=== PATIENT | male | born 1965 | race Caucasian/White ===

== ENCOUNTER 2021-10-01 01:49 | Inpatient (IN) | payer MEDICAID, OTHER ==
[~2021-10-01] VITALS: Ht 175.3 cm; Wt 102.5 kg
--- NOTE | 2021-10-01 02:00 | NUR ---
[id number] FROM STREETS C/O FEELING WEAK TODAY. PATIENT ALERT AND ORIENTED X3, AMBULATORY BUT BROUGHT IN BY STRETCHER. PATIENT IN BED 12 ON MONITOR AND POX, AWAITING MD GANDHI.
[2021-10-01] MEDS ORDERED: hydrALAZINE HCL IV 20 MG VIAL ONE (02:12)
[2021-10-01] MEDS ORDERED: hydrALAZINE HCL IV 20 MG VIAL IV ONE (02:30)
--- NOTE | 2021-10-01 02:37 | NUR ---
BLOOD COLLECTED AND SENT TO LAB
--- NOTE | 2021-10-01 02:37 | NUR ---
URINE COLLECTED AND SENTT O LAB
--- NOTE | 2021-10-01 02:37 | NUR ---
EMT AT BEDSIDE FOR EKG
[2021-10-01 02:46] LABS: BASOPHILS # (AUTO) 0.1 K/uL (0.0-0.2); BASOPHILS % (AUTO) 0.6 % (0.0-2.0); EOSINOPHILS % (AUTO) 1.2 % (0.0-6.0); HEMATOCRIT 30 % (39-51); LYMPHOCYTES # (AUTO) 1.3 K/uL (0.8-4.8); LYMPHOCYTES % (AUTO) 10.4 % (20.0-44.0); MEAN CORPUSCULAR HGB CONC 33 g/dl (31.0-36.0); MEAN CORPUSCULAR VOLUME 93 fL (80-96); MONOCYTES # (AUTO) 1.3 K/uL (0.1-1.30); MONOCYTES % (AUTO) 10.9 % (2.0-12.0); NEUTROPHILS # (AUTO) 9.5 K/uL (1.8-8.9); NEUTROPHILS % (AUTO) 76.9 % (43.0-81.0); PLATELET COUNT (AUTO) 186 K/uL (150-450); RED BLOOD CELL COUNT(AUTO) 3.25 MIL/uL (4.5-6.0); WHITE BLOOD COUNT (AUTO) 12.3 K/uL (4.3-11.0)
--- NOTE | 2021-10-01 02:46 | NUR ---
POC BS ACCUCHECK 90; DR. DE JESUS DO AWARE
--- NOTE | 2021-10-01 02:47 | NUR ---
PT TAKEN TO CT VIA MARCIA
[2021-10-01 02:53] LABS: BILIRUBIN,URINE NEGATIVE (NEGATIVE); COLOR,URINE YELLOW (YELLOW); LEUKOCYTE ESTERASE ,URINE NEGATIVE (NEGATIVE); NITRITE, URINE NEGATIVE (NEGATIVE); PH,URINE 5.5 (5.0-8.0); PROTEIN,URINE 30 mg/dl (NEGATIVE); UGLUCOSE NEGATIVE (NEGATIVE); UROBILINOGEN,URINE 0.2 EU/dL (0.2)
[2021-10-01 03:00] LABS: CALCIUM, SERUM 8.4 mg/dL (8.5-10.1); CARBON DIOXIDE 20 mmol/L (21-32); CHLORIDE 104 mmol/L (98-107); CREATININE 2.6 mg/dL (0.6-1.3); GLUCOSE 107 mg/dL (74-106); POTASSIUM 4.9 mmol/L (3.5-5.1); SODIUM SERUM 134 mmol/L (136-145); UREA NITROGEN, BLOOD 35 mg/dL (7-18)
[2021-10-01 03:06] LABS: ALANINE AMINOTRANSFERASE 17 U/L (12-78); ALBUMIN 2.9 g/dL (3.4-5.0); ALKALINE PHOSPHATASE 141 U/L (46-116); ASPARTATE AMINOTRANSFERASE 48 U/L (15-37); BILIRUBIN,DIRECT 0.3 mg/dL (0.0-0.2); BILIRUBIN,TOTAL 1.9 mg/dL (0.2-1.0); TOTAL PROTEIN, SERUM 9.4 g/dL (6.4-8.2)
--- NOTE | 2021-10-01 04:44 | NUR ---
COVID SWAB COLLECTED AND SENT TO LAB
[2021-10-01] MEDS ORDERED: CEFTRIAXONE 1GM BAG (ER ONLY) 50 ML IV ONE (04:46)
[2021-10-01] MEDS ORDERED: CEFTRIAXONE 1GM BAG (ER ONLY) 1 GM/50 ML PIGGYBACK IV ONE (05:00)
[2021-10-01] MEDS ORDERED: AZITHROMYCIN 500 MG in IV D5W 250 ML IV ONE (05:00)
[2021-10-01] MEDS ORDERED: MAG HYDROX/AL HYDROX/SIMETH 30 ML UDC PO PRN (05:00)
[2021-10-01] MEDS ORDERED: LORAZEPAM INJ 2 MG/ML VIAL IV PRN (05:00)
[2021-10-01] MEDS ORDERED: MAGNESIUM HYDROXIDE 30 ML UDC PO PRN (05:00)
[2021-10-01] MEDS ORDERED: Z GUARD REMEDY 4 OZ OINT TP PRN (05:00)
[2021-10-01] MEDS ORDERED: ZOLPIDEM TARTRATE 5 MG TABLET PO PRN (05:00)
[2021-10-01] MEDS ORDERED: ONDANSETRON HCL/PF 4 MG/2 ML VIAL IVP PRN (05:00)
--- NOTE | 2021-10-01 05:17 | NUR ---
WIRE COATING OPERATOR METAL AT PT'S BEDSIDE
[2021-10-01] MEDS ORDERED: AZITHROMYCIN 500 MG VIAL ONE (05:32)
--- NOTE | 2021-10-01 05:38 | NUR ---
BED ASSIGNMENT: 115-1 AFTER SHIFT CHANGE
--- NOTE | 2021-10-01 07:32 | NUR ---
PT REPORT GIVEN TO LEEANNA HUTCHISON
--- NOTE | 2021-10-01 07:43 | NUR ---
pt was transferred to [facility] in stable condition
[2021-10-01] MEDS: THIAMINE HCL 100 MG TABLET PO SCH (08:23)
[2021-10-01] MEDS: DOXYCYCLINE HYCLATE (100 MG) 100 MG TABLET PO SCH ×2 (08:23→16:09)
[2021-10-01] MEDS: PANTOPRAZOLE 40 MG TABLET.DR PO SCH (08:23)
--- NOTE | 2021-10-01 09:51 | NUR ---
WOUND CARE CONSULT: PT PRESENTS WITH RT BELOW KNEE AMPUTATION STUMP AND OPEN ULCERS TO LEFT PLANTAR FOOT, LEFT HEEL AND LEFT LATERAL LOWER LEG, PRESENT ON ADMISSION. DPM CONSULT CALLED TO DR CLAYTON. RECOMMENDATIONS MADE FOR SKIN PROTECTION. DISCUSSED WITH NURSING STAFF. MD IN AGREEMENT WITH PLAN OF CARE.
--- NOTE | 2021-10-01 11:14 | NUR ---
ADMISSION NOTES PT ADMITTED TO ER, FOUND ON THE SIDE OF THE STREET SLEPING, PT COMPLAINS OF "FEELING WEAK TODAY". PT ADMITTED TO TELE. A/OX 2, PT ON RA SATING AT 98%. IV ACCESS AT L WRIST 22G. ALL PICTURES TAKEN. NO S/S OR C/O PAIN. ALL SAFETY MEAUSURES IN PLACE, FALL PRECAUTIONS IN PLACE, WILL CONT. TO MONITOR THROUGHOUT SHIFT.
[2021-10-01 12:00] VITALS: BP 130/45
[2021-10-01] MEDS: IV NS 0.9% 1,000 ML IV PRN (14:51)
[2021-10-01] MEDS: MORPHINE SULFATE INJ 2 MG/ML DISP.SYRIN IV PRN ×2 (15:08→23:49)
--- NOTE | 2021-10-01 15:29 | NUR ---
SS consult requested for homelessness. Pt. is a 56-year-old male who was admitted to [facility] on 10/01/2021 due to weakness. Per EMR, pt. was found on the side of the street sleeping. Upon SS consult, pt. is alert and oriented x4. Pt. appears unkempt and provides appropriate eye contact. Pt. presents with right lower knew amputated and wounds on left leg. Pt. presents with a normal mood and congruent affect. Pt. stated he was not homeless and currently at an assisted living facility at [address] [place] [address]. Pt. stated that [facility] would know the name of the assisted living facility. Pt. stated he was homeless a month ago but has been staying at this facility. Pt. was unable to provide a name or phone number of the facility. Pt. stated he has history with methamphetamine but hasnt used in years. Pt. denied psychiatric diagnosis. Pt. denied suicidal and homicidal ideation. Pt. denied visual and auditory hallucinations. SS will follow up at a later time for homeless resources.
[2021-10-01 16:00] VITALS: BP 152/62
[2021-10-01] MEDS ORDERED: *INSULIN REGULAR(HUMULIN R)HUM 100 UNIT/ML VIAL SQ PRN (16:30)
[2021-10-01] MEDS ORDERED: DEXTROSE 50%-WATER 50 ML DISP.SYRIN IV PRN (16:30)
[2021-10-01] MEDS: BLOOD SUGAR DIAGNOSTIC 1 EACH STRIP VI SCH ×2 (17:38→21:47)
[2021-10-01] MEDS: INSULIN REGULAR, HUMAN 100 UNIT/ML 3 ML VIAL SQ PRN ×2 (17:41→21:57)
--- NOTE | 2021-10-01 18:51 | NUR ---
RN CLOSING NOTES PT IN BED RESTING, A/OX 2, PT ON RA SATING AT 98%. IV ACCESS AT L WRIST 22G. NO S/S OR C/O PAIN. ALL SAFETY MEASURES IN PLACE, FALL PRECAUTIONS IN PLACE, WILL ENDORSE TO FINANCIAL AUDITOR RN FOR BLANCA.
[2021-10-01] MEDS: hydrALAZINE HCL 25 MG TABLET PO PRN (19:45)
[2021-10-01 20:00] VITALS: BP 168/72
--- NOTE | 2021-10-01 20:00 | NUR ---
PT IN BED RESTING, HOB ELEVATED. A/OX 2, PT ON RA WITH 99 % O2 SAT. IV ACCESS AT L WRIST 22G. IV FLUIDS RUNNING. NO S/S OR C/O PAIN. ALL SAFETY MEASURES IN PLACE, FALL PRECAUTIONS IN PLACE. CALL LIGHT IN REACH.
[2021-10-01 21:27] VITALS: BP 103/70
[2021-10-02] VITALS: BP 143/60
[2021-10-02] MEDS: IV NS 0.9% 1,000 ML IV PRN ×2 (03:40→16:53)
[2021-10-02 04:00] VITALS: BP 139/62
[2021-10-02] MEDS: CEFTRIAXONE 1 G in IV D5W 50 ML IV SCH (04:05)
--- NOTE | 2021-10-02 06:43 | NUR ---
CLOSING RN NOTE: A/O X2. REORIENTED NEEDED. MOIST ORAL MUCOSA. FAIR SKIN TURGOR. IV FLUIDS RUNNING NS AT 75MLS /HR ON LEFT WRIST IV. IV INTACT WITH NO S/S OF COMPLICATIONS. ON TELE READING SINUS RHYTHM 72. ON ABX IV. BLOOD AND LEG FOOT WOUND CULTURES PENDING. LEFT FOOT WOUND DRESSING IS CLEAN AND DRY. KEPT OFF LOADED. BLOOD GLUCOSE CHECKED AND COVERED ORDERED. TIME ONE EPISODE OF EMESIS UNDIGESTED FOOD, DECLINED MAALOX. REQUESTED TYLENOL FOR HEADACHE, MARTÍN GUZMAN TRIMMER MACHINE NOTIFIED. CONTINENT AND INCONTINECE OF URINE. KEPT CLEAN AND DRY. FALL PRECAUTIONS MAINTAINED. WILL ENDORSE TO AM NURSE RN.
[2021-10-02] MEDS: PANTOPRAZOLE 40 MG TABLET.DR PO SCH ×2 (07:30→08:42)
--- NOTE | 2021-10-02 07:40 | NUR ---
RN OPENING NOTE RECEIVED PATIENT A/O X2-3 BREATHING ON ROOM AIR AT 99%, NO S/S OF SOB OR DISTRESS. IV FLUIDS RUNNING NS AT 75MLS /HR ON LEFT WRIST. IV INTACT WITH NO S/S OF INFILTRATION. LEFT FOOT WOUND DRESSING IS CLEAN AND DRY. RIGHT LEG BELOW THE KNEE AMPUTEE. SAFETY MEASURES IN PLACE WITH BED IN LOWEST POSITION, CALL LIGHT WITHIN REACH AND ALARM ACTIVATED.
[2021-10-02 08:00] VITALS: BP 169/72
[2021-10-02] MEDS: BLOOD SUGAR DIAGNOSTIC 1 EACH STRIP VI SCH ×4 (08:41→21:25)
[2021-10-02] MEDS: THERAHONEY GEL 1.5 OZ TUBE TP SCH (08:42)
[2021-10-02] MEDS: AMLODIPINE BESYLATE 5 MG TABLET PO SCH ×2 (08:42→08:48)
[2021-10-02] MEDS: DOXYCYCLINE HYCLATE (100 MG) 100 MG TABLET PO SCH ×3 (08:42→17:20)
[2021-10-02] MEDS: THIAMINE HCL 100 MG TABLET PO SCH ×2 (08:42→08:47)
[2021-10-02 08:56] LABS: BASOPHILS % (AUTO) 0.5 % (0.0-2.0); EOSINOPHILS % (AUTO) 3.1 % (0.0-6.0); HEMATOCRIT 25 % (39-51); HEMOGLOBIN 8.3 g/dL (13.5-17.5); LYMPHOCYTES # (AUTO) 0.9 K/uL (0.8-4.8); LYMPHOCYTES % (AUTO) 12.5 % (20.0-44.0); MEAN CORPUSCULAR HGB CONC 33 g/dl (31.0-36.0); MEAN CORPUSCULAR VOLUME 94 fL (80-96); MONOCYTES % (AUTO) 13.5 % (2.0-12.0); NEUTROPHILS # (AUTO) 5.1 K/uL (1.8-8.9); NEUTROPHILS % (AUTO) 70.4 % (43.0-81.0); PLATELET COUNT (AUTO) 124 K/uL (150-450); RED BLOOD CELL COUNT(AUTO) 2.65 MIL/uL (4.5-6.0); WHITE BLOOD COUNT (AUTO) 7.3 K/uL (4.3-11.0)
[2021-10-02 09:20] LABS: CALCIUM, SERUM 7.6 mg/dL (8.5-10.1); CREATININE 2.6 mg/dL (0.6-1.3); MAGNESIUM 1.8 mg/dL (1.8-2.4); PHOSPHORUS 4.2 mg/dL (2.5-4.9); POTASSIUM 4.2 mmol/L (3.5-5.1)
[2021-10-02 09:34] LABS: THYROID STIMULATING HORMONE 3.682 uIU/mL (0.358-3.74)
[2021-10-02] MEDS: MORPHINE SULFATE INJ 2 MG/ML DISP.SYRIN IV PRN (13:31)
--- NOTE | 2021-10-02 14:46 | NUR ---
SS Note: SW followed up and met with pt. to establish clear discharge plan. The pt. states that he was experiencing homelessness but was last residing at an assisted living facility [[address] [facility] [address]] and wants to return there when ready for discharge. Pt. states his belonging including his wheelchair. Pt. currently has a rollator walker at bedside. SW discuss discharge plan with Moraima BARNEY regarding transport arrangement and she stated she will follow up. SW provided pt. with the following homeless resources and pt. accepted them. Pt. signed homeless waiver ad it was placed in the pt.'s chart. Year-round shelters: [facility] [place] [address] [place], [place] [phone] ; [facility] [place] [address] [place] [address]; [facility] [id number] [facility]. [facility] [address] Hygiene: [facility]: [address] [place] [address] [place] ; [facility] [address] [facility] ; [facility] [address] [facility] . Food Resources: [facility] at [facility]- [address] [facility]; Meet Each Need with Dign[facility] ([facility]) [address] [facility]; [facility] 3621 [facility]; [facility] 5266 [facility]. Mental Health resources provided: [facility] [address] [place] [address] ; [facility] [address] [facility] [address], [place] [address] ; Sushma Maradiaga [facility] [address] [place] [address] ; [facility] [place], [place] [phone] Healthcare Clinics: [facility] [address] [facility], [address] [place] ; [facility] [address] [facility] [address] [place] [address]; [facility] [address] [facility] [phone]) [phone] Counseling--Outpatient [facility] [address] [facility], [place] [address] (Specializes in in-depth psychotherapy for emotional distress: anxiety, depression, interpersonal conflicts, life transitions, childhood abuse) [facility] [address] [place] [address] (Assist with solving problem marital difficulties, separation & divorce, aging parents, & grief, chronic & terminal illness) [facility] [address] [place] [address] (Deal with loss & grief, anxiety, marital difficulties) Homebound/Mental Health Services [address] [facility] [address] [place] [address] (Provide in-home mental services to people who are incapable of leaving their homes) [facility] of the Elderly [facility] [address] [facility] [address] [facility] [address] [place] [address] PSYCHIATRIC OUTPATIENT SERVICES [facility] Partial Hospitalization and Intensive Outpatient Program (Managed Care and [place] Only)[address] [facility]. [facility] [phone] [facility] Partial Hospitalization and Outpatient [id number] [facility] [address] [place], [place] [phone] [facility], [facility] [id number] [facility] [address] [place], [place] [phone] [facility] Partial Hospitalization and Outpatient [id number] [place], [phone] Substance Abuse resources provided included: [facility] Substance Abuse Self-Helpline ([facility]) ; [facility] [address] [facility]. [place] [address] ; [facility] [place] [address] [facility] [address] ; [facility] [address] [place]. [place] [phone] ; [facility] [address] [facility] [phone] ; [facility] 7424 [address] [facility] [address] ; [facility] 904 [facility] [phone] ; [facility] Substance Abuse Helpline([facility] ; [facility] ; [facility]; [facility] [place]; [facility] [place]; [facility] [place]; [facility] [place]; [facility]; [facility] [place]; Alcoholics Anonymous -[facility]; Zw-Qxsy-Cvzmrrs ; Marijuana Anonymous -[facility]; Narcotics Anonymous [email or web address];
[2021-10-02 16:00] VITALS: BP 156/74
--- NOTE | 2021-10-02 19:06 | NUR ---
RN CLOSING NOTES NO SIGNIFICANT CHANGES ON PATIENT CONDITION THROUGHOUT [facility]. PATIENT AWAKE, A/O X2-3 BREATHING ON ROOM AIR TOLERATING WELL. BREATHING UNLABORED. NO S/S OF SOB OR DISTRESS. IV FLUIDS INFUSING NS AT 75MLS /HR ON LEFT WRIST#22G. IV INTACT AND PATENT WITH NO S/S OF INFILTRATION. ALL DUE MEDS GIVEN ORDERED. KEPT PATIENT CLEAN DRY AND COMFORTABLE. WOUND CARE RENDERED TOLERATED WELL. SAFETY MEASURES IN PLACE WITH BED IN LOWEST POSITION, CALL LIGHT WITHIN REACH AND ALARM ACTIVATED. WILL ENDORSE TO ANGIOGRAPHY TECHNOLOGIST NURSE FOR CONTINUITY OF CARE.
[2021-10-02] MEDS: hydrALAZINE HCL 25 MG TABLET PO PRN (21:01)
[2021-10-03] MEDS: MORPHINE SULFATE INJ 2 MG/ML DISP.SYRIN IV PRN (00:43)
[2021-10-03 03:19] VITALS: BP 146/71
[2021-10-03 04:00] VITALS: BP 129/51
[2021-10-03] MEDS: CEFTRIAXONE 1 G in IV D5W 50 ML IV SCH (05:11)
[2021-10-03 06:06] LABS: BASOPHILS % (AUTO) 0.7 % (0.0-2.0); HEMATOCRIT 23 % (39-51); HEMOGLOBIN 7.6 g/dL (13.5-17.5); LYMPHOCYTES % (AUTO) 14.4 % (20.0-44.0); MEAN CORPUSCULAR HGB CONC 33 g/dl (31.0-36.0); MEAN CORPUSCULAR VOLUME 94 fL (80-96); MONOCYTES % (AUTO) 13.8 % (2.0-12.0); NEUTROPHILS # (AUTO) 4.7 K/uL (1.8-8.9); NEUTROPHILS % (AUTO) 67.1 % (43.0-81.0); PLATELET COUNT (AUTO) 113 K/uL (150-450); RED BLOOD CELL COUNT(AUTO) 2.42 MIL/uL (4.5-6.0)
[2021-10-03 06:45] LABS: CALCIUM, SERUM 7.4 mg/dL (8.5-10.1); CREATININE 2.1 mg/dL (0.6-1.3); MAGNESIUM 1.8 mg/dL (1.8-2.4); PHOSPHORUS 4.9 mg/dL (2.5-4.9); POTASSIUM 4.6 mmol/L (3.5-5.1)
--- NOTE | 2021-10-03 06:55 | NUR ---
RN CLOSING NOTE: A/O X3. MOIST ORAL MUCOSA. FAIR SKIN TURGOR. ON ABX IV FOR PNA. IV FLUIDS RUNNING FOR LOYDA. NO A/R. IV SITE ON RIGHT WRIST WITH NO S/S OF COMPLICATION. BLOOD GLUCOSE MONITORED AND REFUSED SLIDING SCALE AT 2200. S/P EXCISIONAL DEBRIDEMENT ON LEFT FOOT WOUNDS WITH MINIMAL BLEEDING ON DRESSING, AND REINFORCED. ON PAIN MANAGEMENT WITH PRN MORPHINE IV AND EFFECTIVE. TELE MONITOR WITH SINUS RHYTHM. FALL PRECAUTIONS MAINTAINED. AT THIS TIME AWAKE IN BED WITH HOB ELEVATED. CALL LIGHT WITHIN REACH. DECLINES PAIN OR DISCOMFORT.
--- NOTE | 2021-10-03 07:32 | NUR ---
RN OPENING NOTES: RECEIVED PATIENT IN BED, AWAKE, ALERT AND ORIENTED X 2. ON RA WITH OXYGEN SATURATION OF 99%. PATIENT WITH IV ACCESS ON RIGHT WRIST, PATENT, WITH NO S/S OF INFILTRATION WITH NS RUNNING @ 75 ML/HR. SR UP X2, BED LOCKED AND IN LOWEST POSITION. ALL SAFETY MEASURES IMPLEMENTED. CALL LIGHT WITHIN REACH. WILL CONTINUE PATIENT THROUGHOUT SHIFT.
[2021-10-03] MEDS: PANTOPRAZOLE 40 MG TABLET.DR PO SCH (07:42)
[2021-10-03 08:00] VITALS: BP 164/69
[2021-10-03] MEDS: BLOOD SUGAR DIAGNOSTIC 1 EACH STRIP VI SCH ×2 (08:11→12:19)
[2021-10-03] MEDS: INSULIN REGULAR, HUMAN 100 UNIT/ML 3 ML VIAL SQ PRN (08:19)
[2021-10-03 08:53] VITALS: BP 164/69
[2021-10-03] MEDS: THIAMINE HCL 100 MG TABLET PO SCH (08:53)
[2021-10-03] MEDS: THERAHONEY GEL 1.5 OZ TUBE TP SCH (08:53)
[2021-10-03] MEDS: DOXYCYCLINE HYCLATE (100 MG) 100 MG TABLET PO SCH (08:53)
[2021-10-03] MEDS: AMLODIPINE BESYLATE 5 MG TABLET PO SCH (08:53)
--- NOTE | 2021-10-03 14:45 | NUR ---
PATIENT DECIDED TO LEAVE AGAINST MEDICAL ADVICE. EXPLAINED TO THE PATIENT THAT THERE IS A DISCHARGE ORDER FOR HIM FOR TOMORROW BUT STILL INSISTED ON LEAVING THE FACILITY. PATIENT SIGNED AMA. UNABLE TO PROVIDE DISCHARGE INSTRUCTIONS DUE TO PATIENT REQUESTED TO LEAVE THE FACILITY RIGHT AWAY. IV DISCONTINUED AND NOTED TO HAVE INTACT HUB, NO BLEEDING NOTED. CURRICULUM AND ASSESSMENT COORDINATOR WAS TAKEN OFF OFF THE PATIENT INCLUDING THE NAME BAND. AMBULANCE WILL BE PICKING UP THE PATIENT. DRESSING ON RIGHT FOOT INTACT.
--- NOTE | 2021-10-03 17:39 | NUR ---
TRANSPORTATION CAME BY TO [facility]OM [facility] THE PATIENT PREVIOUSLY ARRANGED BY THE SINGLE STROKE PREFORMER. GAVE REPORT TO MILTON. PATIENT LEFT IN NO APPARENT DISTRESS NOTED AND LEFT VIA GURNEY.
== END 2021-10-03 18:03 | disposition left against medical advice (07) | DRG 139 ==
LOC: ER 01:58 → TELE1 06:42 → MEDSG1 10-02 21:18
PROVIDERS: ADMIT Student in an Organized Health Care Education/Training Program; ATTEND Student in an Organized Health Care Education/Training Program
PROC: 0JBR0ZZ Excision of Left Foot Subcutaneous Tissue and Fascia, Open Approach (ICD-10-PCS; principal; 2021-10-01)
PROC: 0JBP0ZZ Excision of Left Lower Leg Subcutaneous Tissue and Fascia, Open Approach (ICD-10-PCS; 2021-10-01)
DX: J15.9 Unspecified bacterial pneumonia (principal); N17.0 Acute kidney failure with tubular necrosis; G92.8 Other toxic encephalopathy; E44.0 Moderate protein-calorie malnutrition; E87.1 Hypo-osmolality and hyponatremia; E88.09 Other disorders of plasma-protein metabolism, not elsewhere classified; E87.2 Acidosis; D63.8 Anemia in other chronic diseases classified elsewhere; I16.0 Hypertensive urgency; Z20.822 Contact with and (suspected) exposure to COVID-19; E11.22 Type 2 diabetes mellitus with diabetic chronic kidney disease; E11.40 Type 2 diabetes mellitus with diabetic neuropathy, unspecified; E11.621 Type 2 diabetes mellitus with foot ulcer; E11.622 Type 2 diabetes mellitus with other skin ulcer; I12.9 Hypertensive chronic kidney disease with stage 1 through stage 4 chronic kidney disease, or unspecified chronic kidney disease; L97.429 Non-pressure chronic ulcer of left heel and midfoot with unspecified severity; L97.529 Non-pressure chronic ulcer of other part of left foot with unspecified severity; N18.9 Chronic kidney disease, unspecified; L97.829 Non-pressure chronic ulcer of other part of left lower leg with unspecified severity; Z89.511 Acquired absence of right leg below knee; R74.01 Elevation of levels of liver transaminase levels; E86.0 Dehydration; R93.89 Abnormal findings on diagnostic imaging of other specified body structures; Z91.19 Patient's noncompliance with other medical treatment and regimen; F15.10 Other stimulant abuse, uncomplicated; F10.10 Alcohol abuse, uncomplicated; F17.200 Nicotine dependence, unspecified, uncomplicated; Z59.00 Homelessness unspecified; Z83.3 Family history of diabetes mellitus
CPT/HCPCS: 36415; 70450-TC; 71045-TC; 76770-TC; 80048-TC; 80076-TC; 82962-TC; 83605-TC; 83735-TC; 84100-TC; 84443-TC; 84484-TC; 85025-TC; 85730-TC; 87040-TC; 87081-TC; 97112-TC; 97530-TC; A4217; A6253; C9803; G0378; G0480; J0360; J0456; J0696; J1815; J2270; J7030; J7060